=== PATIENT | female | born 1975 | race Caucasian/White ===

== ENCOUNTER → 2019-07-04 06:59 | Outpatient (CLI) | payer OTHER, SELFPAY ==
--- NOTE | ~2019-07-04 | MM_ITS ---
EXAMINATION: MM screening [facility] BI w cristian HISTORY: Screening mammogram TECHNIQUE: Craniocaudal and mediolateral oblique 3-D tomosynthesis images were obtained and synthetic 2-D images were generated. CAD analysis was submitted and interpreted. COMPARISON: 03/26/2018, 03/21/2017, 03/06/2017, 12/09/2015 BREAST PARENCHYMAL COMPOSITION: The breasts are heterogeneously dense, which may obscure small masses . FINDINGS: There is no evidence of suspicious mass, calcification, or architectural distortion to sugg est malignancy in either breast. There has been no suspicious interval change. IMPRESSION: 1. No mammographic evidence of malignancy. 2. Recommend routine screening mammography in one year. BI-RADS Category 1: Negative Reviewed, dictated and finalized at location A.
== END ==
PROVIDERS: Visit Provider Obstetrics & Gynecology
DX: Z12.31 Encounter for screening mammogram for malignant neoplasm of breast (principal)
CPT/HCPCS: 77063; 77067

== ENCOUNTER → 2019-11-15 10:12 | Outpatient (CLI) | payer OTHER, SELFPAY ==
--- NOTE | ~2019-11-15 | XR_ITS ---
EXAMINATION: XR hip RT min 2V DATE: 11/15/2019 10:34 INDICATION: Right hip pain. TECHNIQUE: 2 views of right hip were obtained. COMPARISON: None. FINDINGS: Bone alignment is normal. No fracture. There is mild right hip osteoarthritis. IMPRESSION: 1. Mild right hip osteoarthritis. Reviewed, dictated and finalized at location A.
== END ==
PROVIDERS: PCP Family Medicine; Visit Provider Family Medicine
DX: M16.11 Unilateral primary osteoarthritis, right hip (principal)
CPT/HCPCS: 73502

== ENCOUNTER → 2020-07-14 13:39 | Outpatient (CLI) | payer OTHER, SELFPAY ==
--- NOTE | ~2020-07-14 | XR_ITS ---
XR ankle RT min 3V DATE: 07/14/2020 13:56 INDICATION: Right ankle pain TECHNIQUE: 4 views COMPARISON: 05/12/2014 right ankle FINDINGS: There is mild lateral soft tissue swelling of the ankle. No fracture or dislocation of the ankle or disruption of the ankle mortise. Plantar and posterior calcaneal enthesopathy. No periosteal reaction or bone destruction. IMPRESSION: Mild lateral soft tissue swelling Calcaneal enthesopathy Reviewed, dictated and finalized at location B.
== END ==
PROVIDERS: PCP Family Medicine; Visit Provider Physician Assistant
DX: M79.89 Other specified soft tissue disorders (principal); M77.51 Other enthesopathy of right foot and ankle
CPT/HCPCS: 73610

== ENCOUNTER → 2020-12-21 15:57 | Outpatient (CLI) | payer OTHER, SELFPAY ==
--- NOTE | ~2020-12-21 | MM_ITS ---
EXAMINATION: MM screening [facility] w cristian HISTORY: Screening TECHNIQUE: Craniocaudal and mediolateral oblique 3-D tomosynthesis images were obtained and synthetic 2-D images were generated. CAD analysis was submitted and interpreted. COMPARISON: Comparison to multiple prior studies sequentially, with oldest reviewed study dated 11/10. BREAST PARENCHYMAL COMPOSITION: The breasts are extremely dense, which lowers the sensitivity of mamm ography. FINDINGS: There is no evidence of suspicious mass, calcification, or architectural distortion to sugg est malignancy in either breast. There has been no suspicious interval change. IMPRESSION: 1. No mammographic evidence of malignancy. 2. Recommend routine screening mammography in one year. BI-RADS Category 1: Negative Reviewed, dictated and finalized at location A.
== END ==
PROVIDERS: Visit Provider Advanced Practice Midwife
DX: Z12.31 Encounter for screening mammogram for malignant neoplasm of breast (principal)
CPT/HCPCS: 77063; 77067

== ENCOUNTER → 2021-01-28 08:08 | Outpatient (CLI) | payer OTHER, SELFPAY ==
--- NOTE | ~2021-01-28 | XR_ITS ---
XR cervical spine min 6V DATE: 01/28/2021 08:29 INDICATION: Neck pain TECHNIQUE: AP, open-mouth, lateral, swimmer views. Flexion and extension lateral views. COMPARISON: None FINDINGS: There is straightening of the cervical spine which may be due to muscle spasm. C1 and C2 are normally aligned and the odontoid process is intact. No fracture or dislocation or lock ed facet or prevertebral soft tissue swelling. There is no evidence of cervical instability on flexion or extension. There is moderately prominent degenerative disc disease and anterior spurring at C3-4, C4-5 and C5-6 and severe degenerative disc disease at C6-7. IMPRESSION: Multilevel degenerative disc disease, most pronounced at C6-7 Reviewed, dictated and finalized at location A.
== END ==
PROVIDERS: PCP Family Medicine; Visit Provider Physician Assistant
DX: M50.323 Other cervical disc degeneration at C6-C7 level (principal)
CPT/HCPCS: 72052

== ENCOUNTER → 2021-03-05 07:46 | Outpatient (CLI) | payer OTHER, SELFPAY ==
--- NOTE | ~2021-03-05 | MR_ITS ---
EXAMINATION: MR cervical spine wo con DATE: 03/05/2021 08:39 INDICATION: Cervical radiculopathy. Neck pain. TECHNIQUE: Magnetic resonance imaging (MRI) of the cervical spine was performed without intravenous c ontrast. Sequences included sagittal T2-weighted FSE, sagittal STIR FSE, sagittal T1-weighted FSE, ax ial MERGE, and axial T2-weighted FSE. COMPARISON: Cervical spine MRI 03/26/2018, radiographs 01/28/2021 FINDINGS: There is hypolordosis of cervical spine. Vertebral body heights are normal. There is modera tely decreased disc height at C3-C4, C5-C6, and C6-C7 and mildly decreased disc height at C4-C5. Ther e is syringohydromyelia at C5 with diameter 3 mm. The following disc levels are specifically discusse d: C2-C3: The disc does not extend beyond the endplate margin. There is no uncovertebral joint osteoarth ritis. There is mild bilateral facet joint osteoarthritis. There is no neural foraminal stenosis. The re is no central canal stenosis. C3-C4: The disc is bulging. There is mild bilateral uncovertebral joint osteoarthritis. There is mild bilateral facet joint osteoarthritis. There is mild bilateral neural foraminal stenosis. There is no central canal stenosis. C4-C5: The disc is bulging. There is mild bilateral uncovertebral joint osteoarthritis. There is mild bilateral facet joint osteoarthritis. There is moderate neural foraminal stenosis. There is mild idalia tral canal stenosis. C5-C6: The disc is bulging. There is mild right and severe left uncovertebral joint osteoarthritis. T here is mild right and severe left facet joint osteoarthritis. There is moderate left neural foramina l stenosis. There is mild central canal stenosis. C6-C7: The disc is bulging. There is moderate right and mild left uncovertebral joint osteoarthritis. There is moderate left facet joint osteoarthritis. There is moderate right and mild left neural fora concepción stenosis. There is mild central canal stenosis. C7-T1: The disc does not extend beyond the endplate margin. There is no uncovertebral joint osteoarth ritis. There is moderate bilateral facet joint osteoarthritis. There is no neural foraminal stenosis. There is no central canal stenosis. IMPRESSION: 1. Moderate cervical spondylosis, stable from 03/26/2018. 2. 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 Reviewed, dictated and finalized at location A. FINISHER
== END ==
PROVIDERS: PCP Family Medicine; Visit Provider Nurse Practitioner Family
DX: M47.22 Other spondylosis with radiculopathy, cervical region (principal)
CPT/HCPCS: 72141

== ENCOUNTER → 2022-03-22 16:14 | Outpatient (CLI) | payer OTHER, SELFPAY ==
--- NOTE | ~2022-03-22 | MM_ITS ---
EXAMINATION: MM screening [facility] BI w cristian HISTORY: Screening mammogram TECHNIQUE: Craniocaudal and mediolateral oblique 3-D tomosynthesis images were obtained and synthetic 2-D images were generated. CAD analysis was submitted and interpreted. COMPARISON: 12/21/2020, 07/04/2019, 03/26/2018 BREAST PARENCHYMAL COMPOSITION: The breasts are heterogeneously dense, which may obscure small masses . FINDINGS: No suspicious mass, calcification, or architectural distortion are identified in either yisel ast to suggest malignancy. There has been no suspicious interval change. IMPRESSION: 1. No mammographic evidence of malignancy. 2. Recommend routine screening mammography in one year. BI-RADS Category 1: Negative Reviewed, dictated and finalized at location A. CAPPER
== END ==
PROVIDERS: PCP Family Medicine; Visit Provider Advanced Practice Midwife
DX: Z12.31 Encounter for screening mammogram for malignant neoplasm of breast (principal)
CPT/HCPCS: 77063; 77067

== ENCOUNTER → 2022-04-04 06:58 | Outpatient (CLI) | payer OTHER, SELFPAY ==
--- NOTE | ~2022-04-04 | MR_ITS ---
EXAMINATION: MR hip RT wo con DATE: 04/04/2022 07:50 INDICATION: Right hip pain. TECHNIQUE: Magnetic resonance imaging (MRI) of the right hip was performed without intravenous contra st. COMPARISON: Right hip radiographs 03/02/2022 FINDINGS: Bones/cartilage: Bone alignment is normal. No fracture. The femoral head/neck morphologies are normal. The hip joints demonstrate tiny osteophytes. Small [id number] images of right hip demonstrate partial-thickness c artilage loss superiorly and posteriorly. Labrum: There is a tear of the right acetabular labrum. Fluid: There is no hip joint effusion. There is mild bilateral trochanteric bursitis. Soft tissues: The iliopsoas tendons are normal. There is tendinopathy and partial tear of right gluteus minimus ten don. Right gluteus medius tendon is normal. There is tendinopathy and partial tear of left gluteus mi nimus tendon. There is mild left gluteus medius tendinopathy. There are partial tears of the hamstrin g origins bilaterally. There is edema in right obturator externus muscle, consistent with strain. IMPRESSION: 1. Mild osteoarthritis of the hips. 2. Right acetabular labral tear. 3. Mild strain of right obturator externus muscle. 4. Tendinopathy and partial tears of the gluteus minimus tendons bilaterally. 5. Mild bilateral trochanteric bursitis. 6. Partial tears of the hamstring origins bilaterally. Reviewed, dictated and finalized at location A. TECHNICIAN
== END ==
PROVIDERS: PCP Family Medicine; Visit Provider Orthopaedic Surgery
DX: M70.61 Trochanteric bursitis, right hip (principal); M70.62 Trochanteric bursitis, left hip; M16.0 Bilateral primary osteoarthritis of hip
CPT/HCPCS: 73721

== ENCOUNTER 2023-05-09 08:40 | Outpatient (CLI) | payer OTHER, BC, SELFPAY ==
--- NOTE | ~2023-05-09 | XR_ITS ---
XR chest 2V DATE: 05/09/2023 14:49 INDICATION: Cough for 3 days. RSV. TECHNIQUE: PA and lateral views. Patient was unable to raise 1 arm, resulting in a suboptimal lateral view. COMPARISON: None FINDINGS: Normal heart size. No hilar or mediastinal enlargement. No pulmonary infiltrate or consolid ation, pleural effusion or pulmonary vascular congestion or pneumothorax. There is thoracolumbar dext roscoliosis. IMPRESSION: No active cardiopulmonary disease Reviewed, dictated and finalized at location L. H INSPECTOR
[2023-05-09 09:35] LABS: Influenza A QL RT-PCR Negative (Negative); Influenza B QL RT-PCR Negative (Negative); RSV RNA, RT-PCR Positive (Negative); SARS-CoV-2 RNA PCR Negative (Negative)
== END 2023-05-09 08:41 | disposition home or self-care (01) ==
PROVIDERS: PCP Family Medicine; Visit Provider Physician Assistant
DX: R05.9 Cough, unspecified (principal); R53.83 Other fatigue; Z20.822 Contact with and (suspected) exposure to COVID-19
CPT/HCPCS: 71046; 87637

== ENCOUNTER 2023-07-05 14:16 | Outpatient (CLI) | payer BC, OTHER, SELFPAY ==
--- NOTE | ~2023-07-05 | MM_ITS ---
EXAMINATION: MM screening [facility] w cristian HISTORY: Screening mammogram TECHNIQUE: Craniocaudal and mediolateral oblique 3-D tomosynthesis images were obtained and synthetic 2-D images were generated. Bilateral rotated lateral CC views. CAD analysis was submitted and interp reted. COMPARISON: 03/22/2022, bilateral screening mammogram examinations BREAST PARENCHYMAL COMPOSITION: The breasts are heterogeneously dense, which may obscure small masses . FINDINGS: There is no evidence of suspicious mass, calcification, or architectural distortion to sugg est malignancy in either breast. There has been no suspicious interval change. IMPRESSION: 1. No mammographic evidence of malignancy. 2. Recommend routine screening mammography in one year. BI-RADS Category 1: Negative Reviewed, dictated and finalized at location A.
== END 2023-07-05 14:17 ==
LOC: MICIMG 14:19
PROVIDERS: PCP Obstetrics & Gynecology; Visit Provider Obstetrics & Gynecology
DX: Z12.31 Encounter for screening mammogram for malignant neoplasm of breast (principal)
CPT/HCPCS: 77063; 77067

== ENCOUNTER 2024-08-21 11:43 | Outpatient (CLI) | payer BC, OTHER, SELFPAY ==
--- NOTE | ~2024-08-21 | MM_ITS ---
EXAMINATION: MM screening [facility] w cristian HISTORY: Screening TECHNIQUE: Craniocaudal and mediolateral oblique 3-D tomosynthesis images were obtained and synthetic 2-D images were generated. CAD analysis was submitted and interpreted. COMPARISON: Comparison to multiple prior studies sequentially, with oldest reviewed study dated 02/23. BREAST PARENCHYMAL COMPOSITION: Dense: The breasts are extremely dense, which lowers the sensitivity of mammography. FINDINGS: There are developing asymmetry in the subareolar and lateral aspect of the right breast, po sterior third. The left breast is stable without evidence for malignancy. IMPRESSION: 1. Developing right breast asymmetries. 2. Additional mammographic views and possible breast ultrasound are recommended. BI-RADS Category 0: Incomplete: Needs additional imaging evaluation. Reviewed, dictated and finalized at location A. IMPRESSION: 1. Developing right breast asymmetries. 2. Additional mammographic views and possible breast ultrasound are recommended . BI-RADS Category 0: Incomplete: Needs additional imaging evaluation.
== END 2024-08-21 11:44 | disposition home or self-care (01) ==
PROVIDERS: PCP Obstetrics & Gynecology; Visit Provider Obstetrics & Gynecology
DX: Z12.31 Encounter for screening mammogram for malignant neoplasm of breast (principal); R92.8 Other abnormal and inconclusive findings on diagnostic imaging of breast
CPT/HCPCS: 77063; 77067

== ENCOUNTER 2024-09-09 13:21 | Outpatient (CLI) | payer BC, OTHER, SELFPAY ==
--- NOTE | ~2024-09-09 | MMUS_ITS ---
EXAMINATION: MM diagnostic brielle RT w cristian, US breast RT complete HISTORY: Follow-up right breast asymmetries TECHNIQUE: Additional 3-D tomosynthesis images of the right breast were performed and synthetic 2-D i mages were generated. CAD analysis was submitted and interpreted. High resolution complete right artur st ultrasound was performed. COMPARISON: Comparison to multiple prior studies sequentially, with oldest reviewed study dated 06/2017. BREAST PARENCHYMAL COMPOSITION: Dense: The breasts are extremely dense, which lowers the sensitivity of mammography. FINDINGS: MAMMOGRAPHIC FINDINGS: There are no suspicious masses, calcifications or architectural distortion in the right breast to sug gest malignancy. ULTRASOUND: Complete US of all 4 quadrants of the right breast/s and retroareolar region was reviewed. There is a 5 mm cyst at 9:00, 4 cm from the nipple. No suspicious masses in the right breast to suggest maligna ncy. IMPRESSION: 1. No evidence for malignancy in the right breast. 2. Routine yearly screening mammogram and regular clinical breast examination are recommended. BI-RADS Category 1: Negative Reviewed, dictated and finalized at location B. IMPRESSION: 1. No evidence for malignancy in the right breast. 2. Routine yearly screening mammogram and regular clinical breast examination a re recommended. BI-RADS Category 1: Negative
--- OUTSIDE RECORDS SUMMARY | 2024-09-09 13:25 | XMS_ITS | Patient Health Record ---
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
--- OUTSIDE RECORDS SUMMARY | 2024-09-09 13:25 | XMS_ITS | Data Portability ---
Author Organization 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 Patient will come back in a year unless there are new symptoms. Not available 01/20/2023 09:55:31 03/14/2024 03/14/2024 Annual gynecological exam performed. Patient will come back in a year unless there are new symptoms. [email or web address] Not available 02/12/2024 12:21:58 Plan of Treatment Reminders Order Date Submit Date Provider Last Modified By Organization Details Last Modified Time Details Appointments None recorded. Lab unlisted lab - women's health swab, MUSTAPHA 2023 024 [facility] (Lab), [address], [place], [address], 4 00:13:50 urinalysis, dipstick 2023 024 [place], [address], [address], [place], [address], 4 17:05:20 culture, urine 2023 024 [facility] (Lab), [address], [place], [address], 4 00:13:50 urinalysis, dipstick 2022 023 [place], [address], [place], [address], 3 18:22:17 Referral None recorded. Procedures None recorded. Surgeries None recorded. Imaging MAMMO, screening, digital, bilateral 2023 024 [facility], [address], [place], [address], 5 14:07:28 US, transvagina l 2022 023 [email or web address] [place], [address], [place], [address], 3 17:34:52 MAMMO, screening, digital, bilateral [address] [facility], [address], [place], [address], 4 11:21:05 Medication Orders fluconazole 150 mg tablet 2023 024 [id number], [address], [place], [id number], 4 17:35:18 hydroxyzine HCl 25 mg tablet 2023 024 [facility], [address], [place], [id number], 4 17:17:48 Diflucan 200 mg tablet 2022 024 [facility], [address], [place], [id number], 4 16:52:57 metronidazo le 500 mg tablet 2022 024 [facility], [address] [facility], [place], [place], [id number], 4 12:22:11 sertraline 50 mg tablet 2021 022 [facility], [facility], [place], [address], 4 16:52:55 Patient TargetsNo targets recorded. Patient InstructionsNo instructions recorded. Reason for Referral None Reported. Results Created Date Observation Date Name Description Value Unit Range Abnormal Flag Note LastModifiedBy Organization Detail LastModifiedTime 11/30/19 22 11/29/2021 IMAGE GUIDE D PAP AND HPV REGAR DLESS image guided Pap, HPV regardless of Pap result SEE RESULT S BELOW CASE REPOR T: Cytol ogy Gynec ologi damian Repor t Case: [id number] Autho bhavani dowling Provi raul: Ally Graham, FRANSICO Colle cted: 11/29 1256 Order ing Locat ion: [place] Path[facility] Recei kleber: 11/30 0128 First Scree n: Rina Luz ret, CT Speci men: Scree víctor Pap - Image d, Cervi x STATE MENT OF ADEQU ACY: Satis facto ry for evalu ation Trans forma tion zone compo nent prese nt FINAL DIAGN OSIS: Negat george for Intra epith elial Keyshawn elizabeth or Joe cross (NIL) . Jose huddleston nas d by Rina Luz ret, CT on 2021 at 1:00 PM ----- ----- ----- ----- ----- ----- ----- ----- ----- ----- ----- ----- ----- ----- ----- ----- ----- ---- HPV RESUL TS: HPV mRNA E6/E7 : No HPV mRNA Detec gabby NOTE: This high risk HPV mRNA assay detec ts fourt een high- risk HPV types (16, 18, 31, 33, 35, 39, 45, 51, 52, 56, 58, 59, 66, 68) witho ut diffe renti ation . COMME NT: Note: This speci men was revie wed by a Cytot echno logis t and/o r Patho logis t (as indic ated in this repor t) after evalu ation using the Thinp rep Imagi ng Syste m. CLINI DAMIAN INFOR MATIO N: Menst rual Statu s: LMP (if appli cable ): Clini damian Histo ry/Pr eviou s Pap: Type of Neopl laurie (if appli cable ): Signi fican t Clini damian Findi ngs: Other Histo ry: Hormo fanny (if appli cable ): PAP EDUCA PAULETTE L NOTE: The Pap Test is a scree víctor test with an inher ent false negat george rate. Liqui d-bas ed sampl ing may decre ase, but will not elimi eric, false negat george resul ts. A negat george resul t does not precl ude the prese nce and/o r devel opmen t of disea se, since the prese nce of abnor mal cells in the sampl e depen ds on the locat ion of the lesio n and sampl ing techn ique. Jed nued regul ar scree víctor is the best metho d of cance r preve ntion . If repor gabby cytol ogic findi ng do not corre late with physi damian and/o r histo rical findi ngs, furth er inves tigat ion is recom kobi d, as clini jaycee warra nted. 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 Elect manuel huddleston nas d by Aminata Valera ica on 2022 at 5:36 PM ----- ----- ----- ----- ----- ----- ----- ----- ----- ----- ----- ----- ----- ----- ----- ----- ----- ---- HPV RESUL TS: HPV mRNA E6/E7 : No HPV mRNA Detec gabby NOTE: This high risk HPV mRNA assay detec ts fourt een high- risk HPV types (16, 18, 31, 33, 35, 39, 45, 51, 52, 56, 58, 59, 66, 68) witho ut diffe renti ation . COMME NT: Slide scree geoffrey pao lly due to rejec tion by the Thinp rep Imagi ng Syste m. CLINI DAMIAN INFOR MATIO N: Menst rual Statu s: LMP (if appli cable ): Clini damian Histo ry/Pr eviou s Pap: Type of Neopl laurie (if appli cable ): Signi jeanette t Clini damian Findi ngs: Other Histo ry: Hormo fanny (if appli cable ): PAP EDUCA PAULETTE L NOTE: The Pap Test is a scree víctor test with an inher ent false negat george rate. Liqui d-bas ed sampl ing may decre ase, but will not elimi eric, false negat george resul ts. A negat george resul t does not precl ude the prese nce and/o r devel opmen t of disea se, since the prese nce of abnor mal cells in the sampl e depen ds on the locat ion of the lesio n and sampl ing techn ique. Jed nued regul ar scree víctor is the best metho d of cance r preve ntion . If repor gabby cytol ogic findi ng do not corre late with physi damian and/o r histo rical findi ngs, furth er inves tigat ion is recom kobi d, as clini jaycee josé manuel nted. Not Available [facility] (Lab) [address], [place], [address], 01/24/2023 18:39:29 04/12/20 23 04/12/2023 urina lysis , dipst ick pH 8 Not Available [place] [address], [place], [address], 04/12/2023 18:21:20 04/12/20 23 04/12/2023 urina lysis , dipst ick Specific [place] 1.005 Not Available [facility] [address], [place], [address], 04/12/2023 18:21:20 03/14/20 24 03/14/2024 WOMEN 'S HEALT H SWAB, MUSTAPHA bacterial vaginosis (bv), tma Negati ve negati ve This test detec ts ribos omal RNA from bacte arnulfo assoc iated with bacte rial vagin osis (BV), inclu ding Lacto bacil aguilar (L. gasse ri, L. crisp atus and L. jense rosa), Gardn erell a vagin layla, and Atopo bium vagin ae by Trans cript ion-M ediat ed Ampli ficat ion (TMA) . A singl e quali tativ e resul t is repor gabby based on instr ument softw are to deter mine BV posit george or negat george statu s. Not Available [facility] (Lab) [address] [facility], [place], [address], 03/16/2024 00:13:49 03/14/20 24 03/14/2024 WOMEN 'S HEALT H SWAB, [place]APHA tereso species, tma Negati ve negati ve Not Available [facility] (Lab) [address] [place], [address], 03/16/2024 00:13:49 03/14/20 24 03/14/2024 WOMEN 'S HEALT H SWAB, MUSTAPHA tereso glabrata, tma Negati ve negati ve Not Available [facility] (Lab) [address] [facility], [place], [address], 03/16/2024 00:13:49 03/14/20 24 03/14/2024 WOMEN 'S HEALT H SWAB, [place]APHA trichomonas vaginalis, tma Negati ve negati ve This assay tests for and diffe renti mariana costello en Susana da glabr brianna, the Susana da speci es group (C. albic ans, C. tropi calis , C. parap arsen is, C. dubli jimi is), and Trich omona s vagin layla by Trans cript ion-M ediat ed Ampli ficat ion (TMA) . Not Available [facility] (Lab) [address] [place], [address], 03/16/2024 00:13:49 03/14/20 24 03/14/2024 CULTU RE: URINE result report SEE RESULT S BELOW Test: Cultu re: Urine Speci men Sourc e: Urine - Clean Catch Speci men Type: Urine Speci men Date: 03/14 1657 Resul t Date: 03/15 2311 Resul t Statu s: Final resul t Abnor mal: No Resul ting Lab: [facility] [address] [facility] [address] Tel: CULTU RE ----- ----- ----- --- No growt h in 1 day (dete ction level of 10,00 0 colon ies / ml.) Not Available [facility] (Lab) [address], [place], [address], 03/16/2024 00:13:50 03/14/20 24 03/14/2024 urina lysis , dipst ick Leukocytes - Not Available [facility] [address], [place], [address], 03/14/2024 17:00:47 03/14/20 24 03/14/2024 urina lysis , dipst ick Nitrite - Not Available [place] [address], [place], [address], 03/14/2024 17:00:47 03/14/20 24 03/14/2024 urina lysis , dipst ick Urobilinogen - Not Available [facility] izabela [address], [place], [address], 03/14/2024 17:00:47 03/14/20 24 03/14/2024 urina lysis , dipst ick Protein trace Not Available [place] [address], [place], [address], 03/14/2024 17:00:47 03/14/20 24 03/14/2024 urina lysis , dipst ick pH 5 Not Available [place] [address], [place], [address], 03/14/2024 17:00:47 03/14/20 24 03/14/2024 urina lysis , dipst ick Specific [place] 1.020 Not Available [facility] yovany [address], [place], [address], 03/14/2024 17:00:47 03/14/20 24 03/14/2024 urina lysis , dipst ick Ketone - Not Available [place] [address], [place], [address], 03/14/2024 17:00:47 03/14/20 24 03/14/2024 urina lysis , dipst ick Bilirubin - Not Available [facility] [address], [place], [address], 03/14/2024 17:00:47 03/14/20 24 03/14/2024 urina lysis , dipst ick Glucose - Not Available [place] [address], [place], [address], 03/14/2024 17:00:47 03/14/20 24 03/14/2024 urina lysis , dipst ick Appearance clear Not Available [facility] [address], [place], [address], 03/14/2024 17:00:47 03/14/20 24 03/14/2024 urina lysis , dipst ick Color light yellow Not Available [place] [address], [place], [address], 03/14/2024 17:00:47 03/23/20 22 03/22/2022 MAMMO , scree víctor, bilat eral No observ ation record ed. [facility] [address] [facility], [place], [address], 03/26/2022 17:46:33 01/27/20 23 01/26/2023 US, trans vagin al No observ ation record ed. [facility] [address], [place], [address], 01/26/2023 13:22:39 01/27/20 23 01/26/2023 US, trans vagin al No observ ation record ed. [facility] [address], [place], [address], 01/31/2023 14:45:18 07/05/19 24 07/05/2023 imagi ng/di agnos tic resul t No observ ation record ed. [facility] [place] [facility] [address], [place], [address], 07/06/2023 10:39:47 08/22/19 25 08/21/2024 MAMMO , scree víctor, digit al, bilat eral No observ ation record ed. [email or web address] [place] [facility] [address], [place], [address], 08/23/2024 09:57:24 08/23/1908/21/2024 MAMMO , scree víctor, digit al, bilat eral No observ ation record ed. [email or web address] [place] [facility] [address], [place], [address], 08/26/2024 12:05:27 Result Notes None recorded. Problems Name Problem SNOMED Code Status Onset Date Resolution Date Notes Provider Name and Address Organization Details Recorded Time Screenin g for malignan t neoplasm of rectum Completed 201709/10/2020 Encounte r for screenin g for malignan t neoplasm of rectum;R ecorded Elsewher e: No Locat ion: [facility] S ource: EHR Facilities Officer tanmay: N Jonnieti ce ID: 0001 Henok lable Time: 08:15:00 AM Yulisa diaz [facility] 16:53:19 Evaluati on finding [id number] Completed 201609/10/2020 Oth abn and inconclu sive findings on dx imaging of breast;R ecorded Elsewher e: No Locat ion: [facility] S ource: EHR Facilities Officer tanmay: N Jonnieti ce ID: 0001 Henok lable Time: 11:19:59 AM Yulisa diaz [facility] 16:53:10 Vaginiti s and vulvovag initis Completed 201209/10/2020 Vaginiti s;Record ed Elsewher e: No Locat ion: [facility] lizzy [facility] S ource: EHR Facilities Officer tanmay: N Practi ce ID: 0001 Henok lable Time: 10:45:00 AM Yulisa diaz, [facility] 16:53:03 Speciali zed medical examinat ion Completed 201409/10/2020 Gynecolo gical Examinat ion;John rded Elsewher e: No Locat ion: [facility] S ource: EHR Facilities Officer tanmay: N Practi ce ID: 0001 Henok lable Time: 08:30:00 AM Yulisa diaz, [facility] 16:53:[address] Concept Completed 201509/10/2020 Encntr for general adult medical exam w/o abnormal findings ;Recorde d Elsewher e: No Locat ion: [facility] S ource: EHR Facilities Officer tanmay: N Practi ce ID: 0001 Henok lable Time: 08:30:00 AM Yulisa diaz, [facility] 16:53:22 Postcoit al finding [id number] Completed 201809/10/2020 Postcoit al bleeding ;Recorde d Elsewher e: No Locat ion: [facility] lizzy [facility] S ource: EHR Facilities Officer tanmay: N Practi ce ID: 0001 Henok lable Time: 03:30:00 PM Yulisa diaz [facility] 16:53:07 Female genital organ symptoms [id number] Completed 201409/10/2020 Unspecif ied symptom associat ed with female genital organs;R ecorded Elsewher e: No Locat ion: [facility] lizzy [facility] S ource: EHR Facilities Officer tanmay: N Practi ce ID: 0001 Henok lable Time: 05:15:00 PM Yulisa daiz [facility] 1 16:53:05 Increase d frequenc y of urinatio n [id number] Completed 201809/10/2020 Frequenc y of micturit ion;John rded Elsewher e: No Locat ion: [facility] S ource: EHR Facilities Officer tanmay: N Jonnieti ce ID: 0001 Henok lable Time: 08:45:00 AM Yulisa diaz [facility] 1 16:53:00 Adult health examinat ion Completed 201409/10/2020 ROUTINE MEDICAL EXAM;Rec orded Elsewher e: No Locat ion: [facility] S ource: EHR Facilities Officer tanmay: N Jonnieti ce ID: 0001 Henok lable Time: 08:30:00 AM Yulisa Dixon [facility] 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 16:53:23 Screenin g procedur e Completed 201809/10/2020 Encounte r for screenin g for malignan t neoplasm of colon;Re corded Elsewher e: No Locat ion: [facility] S ource: EHR Facilities Officer tanmay: N Jonnieti ce ID: 0001 Henok lable Time: 03:30:00 PM Yulisa diaz [facility] 1 16:53:25 Menstrua tion finding Completed 201409/10/2020 Excessiv e or frequent menstrua tion;Rec orded Elsewher e: No Locat ion: [facility] S ource: EHR Facilities Officer tanmay: N Practi ce ID: 0001 Henok lable Time: 08:30:00 AM Yulisa diaz [facility] 1 16:53:36 Screenin g for malignan t neoplasm of cervix Completed 201109/10/2020 Screenin g for malignan t neoplasm s of the cervix;R ecorded Elsewher e: No [facility] Facilities Officer tanmay: N Practi ce ID: 0001 Henok lable Time: 08:45:00 AM Yulisa Zack diaz [facility] 1 16:53:02 Urinary tract infectio us disease [id number] Completed 201009/10/2020 Urinary tract infectio n, site not specifie d;Practi ce ID: 0001 Yulisa Zack joe [facility] 16:53:41 Dysuria [id number] Completed 201009/10/2020 Dysuria; Practice ID: 0001 Yulisa diaz [facility] 16:53:26 Feeling irritabl e [id number] Completed 201009/10/2020 IRRITABI LITY;Pra ctice ID: 0001 Yulisa Jimenezan [facility] 16:53:40 Problem Notes None recorded. Procedures Surgical History Date Name Laterality Status Provider Name and Address Organization Details Recorded Time 3 Date of Last Pap Smear completed Marcela Fowler [facility] 04/12/2023 18:03:21 0 completed Yulisa Dixon [facility] 09/10/2020 17:18:38 9 Carpal tunnel surgery completed Carly Owens [facility] 10/02/2019 11:37:58 7 ligation of bilateral fallopian tubes completed Carly Owens [facility] 10/02/2019 09:22:30 7 section completed Carlaoctavio Hall [facility] 11/08/2021 09:30:46 3 section completed Carla [facility] 11/08/2021 09:30:50 5 extraction of wisdom tooth completed [facility] 11/29/2021 10:37:53 Imaging Results Imaging Date Name Status LastModified by Organization Details LastModified Time 03/22/2022 MAMMO, screening, bilateral completed [facility] [address], [place], [address], 03/26/2022 17:46:33 01/26/2023 US, transvaginal completed jimy Landaverde e [address], [place], [address], 01/26/2023 13:22:39 01/26/2023 US, transvaginal completed [facility] Mckenzie [address], [place], [address], 01/31/2023 14:45:18 07/05/2023 imaging/diagnost ic result completed [facility] [address], [place], [address], 07/06/2023 10:39:47 08/21/2024 MAMMO, screening, digital, bilateral completed [email or web address] [place] [facility] [address], [place], [address], 08/23/2024 09:57:24 08/21/2024 MAMMO, screening, digital, bilateral completed [email or web address] [facility] [address], [place], [address], 08/26/2024 12:05:27 Procedure Notes None recorded. Medical Equipment None Reported. Allergies No known drug allergies Medications Name Sig Start Date Stop Date Status Note LastModified by Organization Details LastModified Time azithromy david 250 mg tablet 11/29 completed Not Available Not Available Not Available fluconazo le 150 mg tablet Take 1 tablet PO once. active Not Available Not Available No t Available benzonata te 200 mg capsule 03/14 completed Not Available Not Available Not Available hydrocodo ne 5 mg-acetam inophen 325 mg tablet 03/14 completed Not Available Not Available Not Available fluconazo le 200 mg tablet TAKE 1 TABLET BY MOUTH EVERY OTHER DAY FOR 3 DOSES 03/14 completed Not Available Not Available Not Available prednison e 20 mg tablet 11/29 completed Not Available Not Available Not Available pimecroli mus 1 % topical cream 09/10 completed Not Available Not Available Not Available meclizine 12.5 mg tablet TAKE 1 TABLET BY MOUTH THREE TIMES DAILY NEEDED FOR DIZZINES S 10/08 completed Not Available Not Available Not Available metronida zole 500 mg tablet TAKE 1 TABLET BY MOUTH TWICE DAILY FOR 7 DAYS. TAKE WITH MEALS. 02/11 completed Not Available Not Available Not Available valacyclo vir 500 mg tablet 2024 active Not Available Not Available Not Avai lable amoxicill in 875 mg tablet TAKE 1 TABLET BY MOUTH TWICE DAILY UNTIL ALL TAKEN 03/14 completed Not Available Not Available Not Available Metrogel Vaginal 0.75 % (37.5 mg/5 gram) insert 1 applicat orful by vaginal route for 5 nights at bedtime 09/10 completed Prescrib margarita Cuevas e: No Locat ion: Saima velazquez [facility] odify By: meenakshi argueta DateTime : 10/09/19 12:57:10 PM Not Available Not Available Not Available methocarb jose raul 750 mg tablet TAKE 1 TABLET BY MOUTH TWICE DAILY FOR 5 DAYS NEEDED 11/29 completed Not Available Not Available Not Available benzonata te 100 mg capsule TAKE 1 TO 2 CAPSULES BY MOUTH THREE TIMES DAILY NEEDED FOR COUGH. DO NOT EXCEED 6 CAPSULES IN 24 HOURS. 03/14 completed Not Available Not Available Not Available cephalexi n 500 mg capsule 09/10 completed Not Available Not Available Not Available gabapenti n 300 mg capsule 11/29 completed Not Available Not Available Not Available hydroxyzi ne HCl 25 mg tablet Take 1 tablet 3 times a day by oral route as needed. active Not Available Not Available No t Available furosemid e 20 mg tablet Take 1 tablet every day by oral route. active Not Available Not Available No t Available methylpre dnisolone 4 mg tablets in a dose pack FOLLOW PACKAGE DIRECTIO NS 10/08 completed Not Available Not Available Not Available albuterol sulfate HFA 90 mcg/actua tion aerosol inhaler INHALE 2 PUFFS BY MOUTH EVERY 4 HOURS NEEDED FOR SHORTNES S OF BREATH active Not Available Not Available No t Available sertralin e 50 mg tablet TAKE 1 TABLET DAILY 03/14 completed Not Available Not Available Not Available cyclobenz aprine 5 mg tablet TAKE 1 TABLET BY MOUTH THREE TIMES DAILY NEEDED FOR MUSCLE SPASM 11/29 completed Not Available Not Available Not Available Lasix 10/08 completed Not Available Not Available Not Available Valtrex 10/07 completed Not Available Not Available Not Available Vitals Date Recorded Body height Body mass index (BMI) Body weight Systolic blood pressure Diastolic blood pressure Provider Name and Address Organization Details Last Updated DateTime 11/29/2021 163.83 cm 28.2 kg/m2 79607.93 g 119 mm[Hg] 79 mm[Hg] Carla Hall [facility] 2 10:33:14 Date Recorded Body height Body mass index (BMI) Body weight Systolic blood pressure Diastolic blood pressure Provider Name and Address Organization Details Last Updated DateTime 01/20/2023 163.83 cm 28.2 kg/m2 72050.93 g 112 mm[Hg] 75 mm[Hg] Marcela Fowler [facility] 3 09:55:46 Date Recorded Body height Body mass index (BMI) Body weight Systolic blood pressure Diastolic blood pressure Provider Name and Address Organization Details Last Updated DateTime 04/12/2023 163.83 cm 28.6 kg/m2 81303.11 g 113 mm[Hg] 67 mm[Hg] Marcela Fowler [facility] 3 18:16:37 Date Recorded Body height Body mass index (BMI) Body weight Systolic blood pressure Diastolic blood pressure Provider Name and Address Organization Details Last Updated DateTime 03/14/2024 163.83 cm 26.4 kg/m2 54181.41 g 119 mm[Hg] 81 mm[Hg] Krys Meek [facility] 4 16:52:35 Social History Question Answer Notes LastModified by Organizat ion Details LastModified Time Tobacco Smoking Status Never Smoker Marcela Fowler [facility] 01/20/2023 09:56:01 Do You Have An Advance Directive? No [email or web address] Information n ot available 11/29/2021 How Many Years Have You Consumed Alcohol? 25 Information not available 11/29/2021 Are You Blind Or Do You Have Difficulty Seeing? No [email or web address] Information n ot available 11/29/2021 What Is Your Level Of Caffeine Consumption? Moderate [email or web address] Information not available 11/29/2021 In The 14 Days Before Symptom Onset, Have You Had Close Contact With A Laboratory-confirm ed COVID-19 While That Case Was Ill? No [email or web address] Information n ot available 11/29/2021 In The 14 Days Before Symptom Onset, Have You Had Close Contact With A Person Who Is Under Investigation For COVID-19 While That Person Was Ill? No [email or web address] Information not available 11/29/2021 Have You Been To An Area Known To Be High Risk For COVID-19? No [email or web address] Information not available 11/29/2021 Are You Deaf Or Do You Have Serious Difficulty Hearing? No [email or web address] Information not available 11/29/2021 What Type Of Diet Are You Following? REGULAR [email or web address] Information n ot available 11/29/2021 What Is The Highest Grade Or Level Of School You Have Completed Or The Highest Degree You Have Received? [id number] [email or web address] Information not available 11/29/2021 Are There Any Guns Present In Your Home? No [email or web address] Information not available 11/29/2021 Have You Ever Been Counseled For Unhealthy Alcohol Use? No Information not available 01/20/2023 Do You Use Protection During Sex? No [email or web address] Information not available 11/29/2021 Do You Use Your Seat Belt Or Car Seat Routinely? Yes [email or web address] Information not available 11/29/2021 Do You Have Smoke And Carbon Monoxide Detectors In Your Home? Yes [email or web address] Information not available 11/29/2021 How Much Tobacco Do You Smoke? No [email or web address] Information not available 11/29/2021 Do You Use Sunscreen Routinely? Yes [email or web address] Information not available 11/29/2021 Has Tobacco Cessation Counseling Been Provided? No Information not available 01/20/2023 Have You Used IV Drugs? No Information not available 01/20/2023 Do You Have Difficulty Walking Or Climbing Stairs? No Information not available 01/20/2023 Sex: Unknown Functional Status Question Answer Note LastModified by Organizat ion Details LastModified Time Do you use any illicit or recreational drugs? No [email or web address] Information not available 11/29/2021 Do you or have you ever used any other forms of tobacco or nicotine? No Information not available 01/20/2023 What is your level of alcohol consumption? Moderate Information not available 11/29/2021 Are you able to walk? YESWOREST [email or web address] Information not available 11/29/2021 Are you able to care for yourself? 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 No Information not available 01/20/2023 What is your exercise level? Moderate [email or web address] Information not available 11/29/2021 Mental Status Question Answer Note LastModified by Organization D etails LastModified Time Do you feel stressed (tense, restless, nervous, or anxious, or unable to sleep at night)? [id number]|2024-09-09 13:25:00|2024-09-09 13:25:00|XMS_ITS|PATRICA PARSONS|External Medical Summaries|[id number]|" Progress note - 07/29/2024 Created on: September 09, 2024 Chiquis Montero : 1975 Sex: Female Author Organization [facility] Address [address] [address] [place] [address] Care Team Providers Care Professor Of Musicology Name Role Phone Arash Jean Primary Care Provider [phone] Allergies No Known Allergies REASON FOR VISIT I have had a couple ear infections in the past couple years in left ear and it feels like its returning. Medications Medication SIG (Take, Route, Frequency, Duration) Notes Start Date End Date Status Amoxicillin-Pot Clavulanate 875-125 MG 1 tablet Orally every 12 hrs for 10 days 07/29/2024 Active Furosemide 20 MG 1 tablet Orally Once a day Active Vital Signs Temperature 97.2 degrees Fahrenheit 07/30/19 25 Blood pressure systolic 113 mm Hg 07/30/19 25 Blood pressure diastolic 77 mm Hg 025 Heart Rate 73 /min 07/29/2024 Respiratory Rate 16 /min 07/29/2024 Height 65 in 07/29/2024 Weight 156.8 lbs 07/29/2024 BMI 26.09 kg/m2 07/29/2024 Oximetry 99 % 07/29/2024 Height-cm 165.1 cm 07/29/2024 Weight-kg 71.12 kg 07/29/2024 Encounters Encounter Location Date Provider Diagnosis [facility] [place] [address] [facility] [address] [place] [address] 07/29/2024 Arash Jean Otitis H66.90 Assessments Encounter Date Diagnosis (ICD Code) Assessment Notes Treatment Notes Treatment Clinical Notes Section Notes 07/29/2024 Otitis (ICD-10 - H66.90) Take Augmentin twice daily for 10 days. I recommend taking a probiotic containing lactobacillus with the medication. Please continue fluticasone 2 sprays per nostril once daily. Recommend adding a Claritin or Zyrtec once daily. Please monitor and return to clinic for worsening symptoms including fever, ear discharge, pain. Plan Of Treatment Medication Medication Name Sig Start Date Stop Date Notes Amoxicillin-Pot Clavulanate 875-125 MG 1 tablet Orally every 12 hrs for 10 days 07/29/2024 Treatment Notes Assessment Notes Otitis Take Augmentin twice daily for 10 days. I recommend taking a probiotic containing lactobacillus with the medication. Please continue fluticasone 2 sprays per nostril once daily. Recommend adding a Claritin or Zyrtec once daily. Please monitor and return to clinic for worsening symptoms including fever, ear discharge, pain. 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 * HPI: D epression Screening: PHQ2 (2015 Edition) L ittle interest or pleasure in doing things? Not at all F eeling down, depressed, or hopeless? N ot at all T otal Score 0 * : 49-year-old female presents for left ear pain x5 days. Pain is intermittent, worse over the weekend. She felt like she had a URI which is now improved. [place] sensation of fluid in her ear couple days ago. reports frequent ear infections on the left side over the last couple years, cause is unclear. Reports congestion.Denies fever, otorrhea, body aches, sore throat, cough. * ROS: G eneral/Constitutional: See HPI X . * Medical History: * Surgical History: C arpal Tunnel 2018Trigger Thumb 2023 * Hospitalization/Major Diagno stic Procedure: D enies Past Hospitalization * Family History: M other: alive, Arthritis, Cancer, Cancer (kidney), Diabetes. F ather: alive, Arthritis. 2 brother(s) . 2 daughter(s) - healthy. . Brothers have heart conditions. * Social History: T obacco Use: O ther Tobacco Use: Patient does not use tobacco products. D rugs/Alcohol: A lcohol: Patient does use alcohol products, socially. History of Drug Use: Patient does not use recreational drugs. M iscellaneous: E xercise: threeToFiveTimesPerWeek. Sexually active: Active? Yes Contraception: n/a. * Medications: T akingFurosemide 20 MG Tablet 1 tablet Orally Once a day Medication List reviewed and reconciled with the patientTaking Furosemide 20 MG Tablet 1 tablet Orally Once a day Medication List reviewed and reconciled with the patient * Allergies: N .K.A.no[Allergies Verified] Objective: * Vitals: T emp:97.2F, Ht: 65 in, Wt:156.8lbs, HR:73/min, Oxygen sat %:99%, RR:16/min, BP:113/77mm Hg, BMI:26.09Index, Ht-cm: 165.1 cm, Wt-k.12 kg. * Examination: G eneral Examination: General Appearance a lert, calm and relaxed, cooperative, in no acute distress. HEAD: n ormocephalic, atraumatic. EYES: B OTH EYES, PERRL, EOMI, eyes clear, no photophobia to light confrontation. EARS: Right ear normal. L eft ear: External ear normal. Mildly opaque fluid present at 3 o'clock position. TM is injected, intact, not bulging.. NOSE: e xternal normal, turbinates red and swollen. ORAL CAVITY: m ucosa moist and pink, no lesions. THROAT: N o erythema, no exudate, uvula midline, with no exudates or ulcerations. NECK/THYROID: n aric supple, full range of motion, no cervical lymphadenopathy or obvious mass.. SKIN: warm and dry. HEART: r egular rate and rhythm, S1, S2 (+), no murmurs, rubs, gallops. LUNGS: c lear to auscultation bilaterally, no wheezes, rales, rhonchi, good air movement. MUSCULOSKELETAL: f ull range of motion x4,. NEUROLOGIC: alert and oriented, gait normal. Gait N ormal. Assessment: * Assessment: 1. O titis - H66.90 (Primary) Plan: * Treatment: * Procedure Codes: * Preventive Medicine: Prevention and Screening: B reast Cancer: Date of Last Mammogram Screen 0 07/12/2023 Results N ormal C ervical Cancer: Date of the last PAP Smear : 1 06/05/2023 Results N ormal C olon Cancer: Date of Last Cologuard 0 10/04/2023 Cologuard Results N ormal * Follow Up: p rn * * Sign off status: Completed true * Appointment Provider: HUGH Haas Date: 0 07/29/2024 Generated for Cole olivas/Hellen/Catherineitting on: 0 09/09/2024 01:25 PM CDT History and Physical Notes * HPI (History of Present Illness) Category Sub-Category Detail Notes Category Not es Depression Screening PHQ2 (2015 Edition) Little interest or pleasure in doing things?: Not at all Feeling down, depressed, or hopeless?: N ot at all Total Score: 0 49-year-ol d female presents for left ear pain x5 days. Pain is intermittent, worse over the weekend. She felt like she had a URI which is now improved. [place] sensation of fluid in her ear couple days ago. reports frequent ear infections on the left side over the last couple years, cause is unclear. Reports congestion.Denies fever, otorrhea, body aches, sore throat, cough. Examination Category Sub-Category Detail Notes Category Not es General Examination General Appearance alert, ca lm and relaxed, cooperative, in no acute distress HEAD: normocephalic, atrau matic EYES: BOTH EYES, PERRL, EO TX, eyes clear, no photophobia to light confrontation EARS: Right ear normal. Le ft ear: External ear normal. Mildly opaque fluid present at 3 o'clock position. TM is injected, intact, not bulging. NOSE: external normal, tur binates red and swollen THROAT: No erythema, no exud ate, uvula midline, with no exudates or ulcerations NECK/THYROID: neck supple, full ra nge of motion, no cervical lymphadenopathy or obvious mass. HEART: regular rate and rhy thm, S1, S2 (+), no murmurs, rubs, gallops LUNGS: clear to auscultatio n bilaterally, no wheezes, rales, rhonchi, good air movement NEUROLOGIC: alert and oriented, gait normal SKIN: warm and dry MUSCULOSKELETAL: full range of motion x4, ORAL CAVITY: mucosa moist and pin k, no lesions Gait Normal "
--- OUTSIDE RECORDS SUMMARY | 2024-09-09 13:25 | XMS_ITS ---
Author Organization [facility] Address [address] [facility] [address] [place] [address] Care Team Providers Care Key Attendant Name Role Phone Arash Jean Primary Care Provider [phone] REASON FOR VISIT flu shot, Flu Vaccine Immunizations Vaccine Route Administration Date Status Comme nts Influenza Vaccine (Flucelvax) IM Intramuscular 02/07/2024 Administered Encounters Encounter Location Date Provider Diagnosis [facility] [address] [facility] [address] [place] [address] 02/07/2024 Arash Jean Influenza vaccine needed Z23 Assessments Encounter Date Diagnosis (ICD Code) Assessment Notes Treatment Notes Treatment Clinical Notes Section Notes 02/07/2024 Influenza vaccine needed (ICD-10 - Z23) Plan Of Treatment No Information Procedure Notes * Category Sub-Category Detail Notes Injections Disposition Pt tolerated pro cedure well and was discharged to home. 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 I nfluenza vaccine needed - Z23 Plan: * Treatment: * Procedures: I njections: Consent Form C onsent: S igned, Scanned into chart Medication M edication Vial Source: [facility] Clinic Supply 5 Rights V erified: P atient,Drug,Dose,Route,Time Injection Site N o reaction. Wait Time P atient waited 1 5 minutes after injection Disposition P t tolerated procedure well and was discharged to home.. * Immunizations: Influenza Vaccine (Flucelvax) : 0.5 mL (Dose No:1) (Route: Intramuscular) given by HUGH Stern on Right Deltoid (Influenza vaccine needed) * Procedure Codes: 9 0471 IMMUNIZATION [id number] IIV3 VACC NO PRSV 0.5 ML [id number] IMMUNIZATION ADMIN EACH ADD * * Sign off status: Completed true * Provider: HUGH Haas Date: Generated for Cole olivas/Hellen/Lorene on: 0 09/09/2024 01:25 PM CDT
--- OUTSIDE RECORDS SUMMARY | 2024-09-09 13:25 | XMS_ITS | Clinical Summary ---
Author Organization [facility] [employer] Address [address] [place] [address] Care Team Providers Care Body Designer Name Role Phone Ivan Whitney MD Primary Care Provider [phone] Source Comments [facility] [employer],non-owned Affiliates and Associated Physician Practices is amultiple site organization consisting of ambulatory clinics and hospital sitesin [place], [place], [place] and [place]. This disclosure is being madepursuant to the Care Everywhere program and may not contain all information available regarding this patient. Last updated 18.[facility] [employer] Allergies No known active allergies Medications * Be aware that medications may not be up to date on this document. Alwaysverify current medications with the patient. 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 Gender Identity Not on file Sexual Orientation Not on file Plan of Treatment Health Maintenance Due Date Last Done Comments COLOGUARD (AGES 45-75) - COL ON CA SCREENING 1975 COLON MONITORING 1975 COLONOSCOPY - COLON CA SCREENING 1973 CT COLONOGRAPHY - COLON CA SCREENING 1975 Colorectal Cancer Screening 1975 FIT - COLON CA SCREENING 1975 FLEX SIG - COLON CA SCREENING 1975 LIPID TESTING 1975 MAMMOGRAM 1975 HIV SCREENING 1988 HEPATITIS C SCREENING 04/05/1991 DTAP/TDAP/TD VACCINES (1 - Tdap) 1992 HEPATITIS B VACCINE (1 of 3 - 19+ 3-dose series) 1992 PNEUMOCOCCAL VACCINE 50+ (1 of 1 - PCV) 2023 ZOSTER VACCINE (1 of 2) 2023 COVID-19 VACCINE (1 - 2023-2 5 season) 2023 DEPRESSION SCREENING 04/24/2024 PAP SMEAR 11/29/2024 11/29/2021 INFLUENZA VACCINE (Season Ended) 2024 01/11/2022, 01/13/2021 HIB VACCINE Aged Out No longer eligi ble based on patient's age to complete this topic HPV VACCINE Aged Out No longer eligi ble based on patient's age to complete this topic MENINGOCOCCAL (Group B) VACCINE SHARED DECISION-MAKING Aged Out No longer eligible based on patient's age to complete this topic MENINGOCOCCAL GROUPS A/C/Y/W VACCINE Aged Out No longer eligible b ased on patient's age to complete this topic Insurance [facility] Address: [address] [facility] [address] [facility] Care Teams Body Designer Relationship Specialty Start Date End Date Ivan Whitney MD [address] [place] [id number] PCP - General 05/26/22
--- OUTSIDE RECORDS SUMMARY | 2024-09-09 13:25 | XMS_ITS | Clinical Summary ---
Author Organization [facility] Address [address] [place] [id number] Care Team Providers Care Boxing Instructor Name Role Phone Unavailable Primary Care Provider Unavailabl e Allergies No known active allergies Medications furosemide (LASIX) 20 mg tablet furosemide 20 mg tablet Active Active Problems Problem Noted Date Diagnosed Date History of peripheral edema 05/25/2023 Arthritis of carpometacarpal (CMC) joint of righ t thumb 04/13/2023 Trigger thumb of right hand 04/13/2023 History of carpal tunnel release 06/24/2019 Overview (05/25/2023): Last Assessment & Plan: Patient is 2 months postop carpal tunnel release on the right. I recommend patient continue with activity as pain tolerated with her wrist. Patient is to follow up as needed if her symptoms worsen. Carpal tunnel syndrome on right 03/20/2019 Overview (05/25/2023): Added automatically from request for surgery [id number] April 18, 2019 Last Assessment & Plan: Continue progressive range of motion and strengthening. Increase activities as tolerated. Stitch distal aspect incision was pulled. Follow up in 1 month Gradually get back into work. 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 Pulse 72 05/25/2023 9:34 AM KEYBOARD ACTION ASSEMBLER Temperature 36.7 C (98 F) 05/25/2023 9:34 AM KEYBOARD ACTION ASSEMBLER Respiratory Rate - - Oxygen Saturation 98% 05/25/2023 9:34 AM KEYBOARD ACTION ASSEMBLER Inhaled Oxygen Concentration - - Weight 76.2 kg (168 lb) 05/25/2023 9:34 AM KEYBOARD ACTION ASSEMBLER Height 165.1 cm (5' 5 ) 05/25/2023 9:34 AM KEYBOARD ACTION ASSEMBLER Body Mass Index 27.96 05/25/2023 9:34 AM KEYBOARD ACTION ASSEMBLER Plan of Treatment Health Maintenance Due Date Last Done Comments DTAP/TDAP/TD VACCINES (1 - Tdap) 1992 HEPATITIS B VACCINES (1 of 3 - 19+ 3-dose series) 1992 HPV/Cotest (21-29) 1994 HPV/Cotest (30-65) 2003 BREAST CANCER SCREENING 2013 COLORECTAL SCREENING 2018 Colorectal Cancer Screening 2018 FIT-DNA Q 3 years 2018 FIT/FOBT Q 1 year 2018 Flex Sig/CT Colonography Q 5 years 2018 ZOSTER VACCINE (1 of 2) 2023 INFLUENZA VACCINE (#1) 2023 01/11/2022, 2020 CERVICAL CANCER SCREENING 01/20/2026 PAP SMEAR 01/20/2026 01/20/2023, 11/29/2021 Insurance [facility] BLUE ACCESS CHOICE [employer] CHOICE FUND OA PLUS
--- OUTSIDE RECORDS SUMMARY | 2024-09-09 13:26 | XMS_ITS | Referral Summary ---
Author Organization [facility] Address [address] [place] [address] Care Team Providers Care Irrigation System Installer Name Role Phone Ivan Whitney MD Primary Care Provider Ivan Whitney MD Unavailable [phone] Encounters Date Type Department Care Team Description 07/02/2024 7:48 AM CDT - 07/02/2024 11:59 PM CDT Hospital Encounter [facility] [address] [place] [address] Girma Colmenares MD Arthritis of carpometacarpal (CMC) joint of right thumb Discharge Disposition: Discharge to home or self care 07/02/2024 7:40 AM CDT Office Visit [facility] Orthopaedic Surgery [address] [facility] 6[address] [place] [address] [place] [address] Girma Colmenares MD Arthritis of carpometacarpal (CMC) joint of right thumb (Primary Dx) from Last 3 Months Allergies No known active allergies Medications furosemide (LASIX) 20 mg tabletIndication s:Edema,veins Take 1 tablet (20 mg total) by mouth every morning 9 Active valACYclovir (VALTREX) 500 mg tablet Take 1 tablet (500 mg total) by mouth 2 (two) times a day as needed (Outbreak) Active MULTIVITAMIN ORALIndications: Supplement Take 1 tablet by mouth every morning Active ibuprofen (ADVIL,MOTRIN) 400 mg tabletIndication s:Pain Take 1 tablet (400 mg total) by mouth every 6 (six) hours as needed for pain Active evening primrose oil 500 mg capsuleIndicatio ns:Supplement Take 1 capsule (500 mg total) by mouth casino dealer before breakfast Active ascorbic acid (vitamin C) 100 mg tabletIndication s:Supplement Take 1 tablet (100 mg total) by mouth casino dealer before breakfast Active acidophilus-pect in, citrus 100 million cell-10 mg capsuleIndicatio ns:Supplement Take 1 capsule by mouth casino dealer before breakfast Active echinacea 380 mg capsuleIndicatio ns:Supplement Take 1 capsule by mouth casino dealer before breakfast Active HYDROcodone-acet aminophen (NORCO) 5-325 mg per tabletIndication s:Pain Take 1 tablet by mouth every 6 (six) hours as needed for pain for up to 15 doses 15 tablet 4 Active benzonatate (TESSALON) 200 mg capsuleIndicatio ns:Non-recurrent acute suppurative otitis media of left ear without spontaneous rupture of tympanic membrane Take 1 capsule (200 mg total) by mouth 3 (three) times a day as needed for cough 30 capsule 4 Active hydrOXYzine (ATARAX) 25 mg tablet Take 1 tablet 3 times a day by oral route as needed. Active Active Problems Problem Noted Date Diagnosed Date Arthritis of carpometacarpal (CMC) joint of righ t thumb 04/13/2023 Trigger thumb of right hand 04/13/2023 History of carpal tunnel release 06/24/2019 Assessment & Plan (06/24/2019 8:29 AM BOBBIN DRIER): Patient is 2 months postop carpal tunnel release on the right. I recommend patient continue with activity as pain tolerated with her wrist. Patient is to follow up as needed if her symptoms worsen. Carpal tunnel syndrome on right 03/20/2019 Overview (05/02/2019): Added automatically from request for surgery [id number] April 18, 2019 Assessment & Plan (05/29/2019 8:45 AM BOBBIN DRIER): Continue progressive range of motion and strengthening. Increase activities as tolerated. Stitch distal aspect incision was pulled. Follow up in 1 month Gradually get back into work. Assessment & Plan (05/13/2019 10:36 AM BOBBIN DRIER): Continue with scar management. Increase activities as tolerated. Off work for 2 more weeks. Follow up in 2 weeks for repeat evaluation and possible return to work. Assessment & Plan (05/02/2019 6:00 PM BOBBIN DRIER): Status post carpal tunnel release on the right. Numbness and tingling is resolved. Still has some mild pillar pain. Encourage massaging of the incision to soften the scar tissue. Continue utilizing the wrist splint at night. Gradually increase activities as tolerated. Follow up in 2 weeks for repeat evaluation. Assessment & Plan (03/25/2019 9:01 PM BOBBIN DRIER): We discussed the risks, benefits and alternatives including not limited to infection, neurovascular compromise, stiffness, persistent pain, need for further surgery, pillar pain. All questions were answered. Patient is thinking she wants to proceed with carpal tunnel release on the right. Increased frequency of urination 10/04/2018 Overview (06/13/2023): Frequency of micturition;Recorded Elsewhere: No Location: [facility] Source: EHR Chronic: N Practice ID: [id number] Billable Time: 08:45:00 AM Female genital symptoms 08/05/2014 Overview (06/13/2023): Unspecified symptom associated with female genital organs;Recorded Elsewhere: No Location: [facility] Source: EHR Chronic: N Practice ID: 0001 Billable Time: 05:15:00 PM Dysuria 10/06/2010 Overview (06/13/2023): Dysuria;Practice ID: 0001 Feeling irritable 10/06/2010 Overview (06/13/2023): IRRITABILITY;Practice ID: 0001 Urinary tract infectious disease 10/06/2010 Overview (06/13/2023): Urinary tract infection, site not specified;Practice ID: 0001 Mass of breast 08/05/2010 Social History Tobacco Use Types Packs/Day Years Used Date Smoking Tobacco: Never Smokeless Tobacco: Never Tobacco Cessation:Counseling Given: Not Answered Alcohol Use Standard Drinks/Week Comments Yes 1 (1 standard drink = 0.6 oz pur e alcohol) socially AUDIT-C Answer Date Recorded Q1: How often do you have a drink containing alc ohol? 2-3 times a week 05/31/2023 Q2: How many drinks containi ng alcohol do you have on a typical day when you are drinking? 1 or 2 05/31/2023 Q3: How often do you have si x or more drinks on one occasion? Never 05/31/2023 Personal Safety Answer Date Recorded Have you ever been in or are you currently in a harmful physical or emotional relationship or is someone making you feel afraid or unsafe? Denies 05/31/2023 Comments Unknown Sex and Gender Information Value Date Recorded Sex Assigned at Not on file Legal Sex Female 7:22 PM BOBBIN DRIER Gender Identity Not on file Sexual Orientation Not on file Last Filed Vital Signs Vital Sign Reading Time Taken Comments Blood Pressure 101/69 01/20/2024 3:52 PM CDT Pulse 80 01/20/2024 3:52 PM CDT Temperature 36.8 C (98.2 F) 01/20/2024 3:52 PM CDT Respiratory Rate 20 01/20/2024 3:52 PM CDT Oxygen Saturation 97% 01/20/2024 3:52 PM CDT Inhaled Oxygen Concentration - - Weight 72.8 kg (160 lb 8 oz) 01/20/2024 3:52 PM CDT Height 165.1 cm (5' 5 ) 01/20/2024 3:52 PM CDT Body Mass Index 26.71 01/20/2024 3:52 PM CDT Plan of Treatment Not on file Medical Devices Implanted Type Area Tool Planer Set Up Operator Device Identifier Shelf Expiration Date Model / Serial / Lot [employer] Corkscrew Fiberwire 2.2mm 4mm 17.9mm 2 Needle Wire Foot Ankle 2-0 Ar-1318ft - S0 - [id number] Implanted:Qty : 2 on 05/31/2023 by Girma Colmenares MD at [facility] Other - see comments Right: Wrist [employer] [id number] 02/22/2028 AR-1318FT / 0 / [id number] Procedures Procedure Name Priority Date/Time Associated Diagnosis Comments XR WRIST RIGHT 3 OR MORE VIEWS Schedule Routine, Read Routine (OP Routine) 07/02/2024 7:58 AM CDT Arthritis of carpometacarpal (CMC) joint of right thumb from Last 3 Months Results * X-ray wrist right 3+ views (07/02/2024 7:58 AM CDT) Anatomical Region Laterality Modality Upper Extremities, Wrist Right Compute d Radiography 07/02/2024 8:16 AM CDT Impressions 07/02/2024 8:16 AM CDT Unchanged postoperative changes of right trapeziectomy and thumb basal joint reconstruction. Electronically signed by: Arash Parker D.O. Narrative 07/02/2024 8:16 AM CDT EXAMINATION: XR WRIST RIGHT 3 OR MORE VIEWS HISTORY: JOINT PAIN, WRIST COMPARISON: Radiograph 04/02/2024 FINDINGS: Postoperative changes of trapeziectomy with anchor screws in the base of the 1st and 2nd metacarpal. Otherwise normal joint spaces and alignment throughout the wrist. No displaced fracture. Procedure Note Arash Parker, DO - 07/02/2024 EXAMINATION: XR WRIST RIGHT 3 OR MORE VIEWS HISTORY: JOINT PAIN, WRIST COMPARISON: Radiograph 04/02/2024 FINDINGS: Postoperative changes of trapeziectomy with anchor screws in the base of the 1st and 2nd metacarpal. Otherwise normal joint spaces and alignment throughout the wrist. No displaced fracture. IMPRESSION: Unchanged postoperative changes of right trapeziectomy and thumb basal joint reconstruction. Electronically signed by: Arash Parker D.O. Girma Colmenares MD IMG XR PROCEDURES Final Resul t from Last 3 Months Insurance REPLACED BY [facility] OPEN ACCESS [employer]IG[employer] OPEN ACCESS CIGNA OPEN ACCESS ANTHEM ACCESS CHOICE WORKERS COMPENSATION GENER[employer] [place]ON [id number] Care Teams Irrigation System Installer Relationship Specialty Start Date End Date Ivan Whitney MD [address] [facility] [address] [place] [address] PCP - General 03/19/19 Ivan Whitney MD [address] [facility] [address] [place] [address] Family Medicine 03/19/19
--- OUTSIDE RECORDS SUMMARY | 2024-09-09 13:26 | XMS_ITS | Clinical Summary ---
Author Organization [facility] Address [address] [place] [address] Care Team Providers Care Executive Officer Special Warfare Team Name Role Phone Ivan Whitney MD Primary Care Provider Ivan Whitney MD Unavailable [phone] Allergies No known active allergies Medications furosemide [...] 1 capsule (500 mg total) by mouth jewelry mold maker before breakfast Active ascorbic acid (vitamin C) 100 mg tabletIndication s:Supplement Take 1 tablet (100 mg total) by mouth jewelry mold maker before breakfast Active acidophilus-pect in, citrus 100 million cell-10 mg capsuleIndicatio ns:Supplement Take 1 capsule by mouth jewelry mold maker before breakfast Active echinacea 380 mg capsuleIndicatio ns:Supplement Take 1 capsule by mouth jewelry mold maker before breakfast Active HYDROcodone-acet aminophen (NORCO) 5-325 [...] 06/24/2019 Assessment & Plan (06/24/2019 8:29 AM AUTOMOTIVE PAINTER HELPER): Patient is 2 months postop carpal tunnel release on the right. I recommend patient continue with activity as pain tolerated with her wrist. Patient is to follow up as needed if her symptoms worsen. Carpal tunnel syndrome on right 03/20/2019 Overview (05/02/2019): Added automatically from request for surgery [id number] April 18, 2019 Assessment & Plan (05/29/2019 8:45 AM AUTOMOTIVE PAINTER HELPER): Continue progressive range of motion and strengthening. Increase activities as tolerated. Stitch distal aspect incision was pulled. Follow up in 1 month Gradually get back into work. Assessment & Plan (05/13/2019 10:36 AM AUTOMOTIVE PAINTER HELPER): Continue with scar management. Increase activities as tolerated. Off work for 2 more weeks. Follow up in 2 weeks for repeat evaluation and possible return to work. Assessment & Plan (05/02/2019 6:00 PM AUTOMOTIVE PAINTER HELPER): Status post carpal tunnel release on the right. Numbness and tingling is resolved. Still has some mild pillar pain. Encourage massaging of the incision to soften the scar tissue. Continue utilizing the wrist splint at night. Gradually increase activities as tolerated. Follow up in 2 weeks for repeat evaluation. Assessment & Plan (03/25/2019 9:01 PM AUTOMOTIVE PAINTER HELPER): We discussed the risks, benefits and alternatives including not limited to infection, neurovascular compromise, stiffness, persistent pain, need for further surgery, pillar pain. All questions were answered. Patient is thinking she wants to proceed with carpal tunnel release on the right. Increased frequency of urination 10/04/2018 Overview (06/13/2023): Frequency of micturition;Recorded Elsewhere: No Location: [facility] Source: EHR Chronic: N Practice ID: 0001 Billable Time: 08:45:00 AM Female genital symptoms 08/05/2014 Overview (06/13/2023): Unspecified symptom associated with female genital organs;Recorded Elsewhere: No Location: [facility] Source: EHR Chronic: N Practice ID: 0001 Billable Time: 05:15:00 PM Dysuria 10/06/2010 Overview (06/13/2023): Dysuria;Practice ID: 0001 Feeling irritable 10/06/2010 Overview (06/13/2023): IRRITABILITY;Practice ID: 0001 Urinary tract infectious disease 10/06/2010 Overview (06/13/2023): Urinary tract infection, site not specified;Practice ID: 0001 Mass of breast 08/05/2010 Encounters Date Type Department Care Team Description 07/02/2024 7:48 AM CDT - 07/02/2024 11:59 PM CDT Hospital Encounter [facility]) [address] [place] [address] Girma Colmenares MD Arthritis of carpometacarpal (CMC) joint of right thumb Discharge Disposition: Discharge to home or self care 07/02/2024 7:40 AM CDT Office Visit [facility] Orthopaedic Surgery [facility] 6th [place] [address] [place] [address] Girma Colmenares MD Arthritis of carpometacarpal (CMC) joint of right thumb (Primary Dx) from Last 3 Months Surgical History Surgery Date Site/Laterality Comments TEMPOROMANDIBULAR JOINT ARTHROPLASTY 04/24/1997 - 1997 SECTION 2003 & 2007 CARPAL TUNNEL RELEASE 04/24/2018 - 04/23/2019 Right Medical History Medical History Date Comments PONV (postoperative nausea and vomiting) Family History Medical History Relation Name Comments Arthritis Mother Cancer Mother Scoliosis Mother Anesthesia problems Neg Hx Relation Name Status Comments Mother Social History Tobacco Use Types Packs/Day Years [...] on file Legal Sex Female 7:22 PM AUTOMOTIVE PAINTER HELPER Gender Identity Not on file Sexual Orientation Not on file Obstetrics History Last Filed Vital Signs Vital Sign Reading [...] 01/20/2024 3:52 PM CDT Plan of Treatment Health Maintenance Due Date Last Done Comments Cervical Cancer Screening 1973 Colon Cancer Screening-Colonoscopy 1973 Depression Screening 1973 Hepatitis C Screening 1973 DTaP/Tdap/Td Vaccine (1 - Tdap) 1984 Hepatitis B Screening 1991 Regular Well Visit/Exam 18-64 1991 Breast Cancer Screening-Mammogram 03/23/2023 03/23/2022, 03/22/2022 Zoster Vaccine (1 of 2) 2023 Influenza Vaccine (Season Ended) 2024 01/11/2022, 01/13/2021, 02/14/2019 Pneumococcal vaccine <65 Aged Out No longer eligible based on patient's age to complete this topic Medical Devices Implanted Type Area Chief Minister Device Identifier Shelf Expiration Date Model / Serial / Lot [employer] Corkscrew Fiberwire 2.2mm 4mm 17.9mm 2 Needle Wire Foot Ankle 2-0 Ar-1318ft - S0 - [id number] Implanted:Qty : 2 on 05/31/2023 by Girma Colmenares MD at [facility] Other - see comments Right: Wrist [employer] [id number] 02/22/2028 AR-1318FT / 0 / [id number] Procedures Procedure Name Priority Date/Time Associated Diagnosis [...] Resul t from Last 3 Months Insurance [employer] OPEN ACCESS [employer] OPEN ACCESS CIGNA OPEN ACCESS ANTHEM ACCESS CHOICE WORKERS COMPENSATION GENERIC Care Teams Executive Officer Special Warfare Team Relationship Specialty Start Date End Date Ivan Whitney MD [address] [place] [address] PCP - General 03/19/19 Ivan Whitney MD [address] [place] [address] Family Medicine 03/19/19
--- OUTSIDE RECORDS SUMMARY | 2024-09-09 13:26 | XMS_ITS | Patient Health Record ---
Author Organization [facility] Address [address] [address] [place] [address] Care Team Providers Care Aircraft Life Support Fitter Name Role Phone Arash Jean Primary Care Provider [phone] Allergies No Known Allergies Reason For Referral No Information Medications Medication SIG (Take, Route, Frequency, Duration) Notes Start Date End Date Status Amoxicillin-Pot Clavulanate 875-125 MG 1 tablet Orally every 12 hrs for 10 days 07/29/2024 Active Furosemide 20 MG 1 tablet Orally Once a day Active Immunizations Vaccine Route Administration Date Status Comme nts Influenza Vaccine (Flucelvax) IM Intramuscular 02/07/2024 Administered Vital Signs Heart Rate 73 /min 07/29/2024 Temperature 97.2 degrees Fahrenheit 07/29/2024 Respiratory Rate 16 /min 07/29/2024 Height-cm 165.1 cm 07/29/2024 Oximetry 99 % 07/29/2024 Blood pressure diastolic 77 mm Hg 07/29/2024 Weight-kg 71.12 kg 07/29/2024 Height 65 in 07/29/2024 Blood pressure systolic 113 mm Hg 07/29/2024 Weight 156.8 lbs 07/29/2024 BMI 26.09 kg/m2 07/29/2024 Encounters Encounter Location Date Provider Diagnosis [facility] [address] [facility] [address] [place] [address] 02/07/2024 Arash Jean Influenza vaccine needed Z23 [facility] [address] [facility] [address] [place] [address] 07/29/2024 Arash Jean Otitis H66.90 Assessments Encounter [...] worsening symptoms including fever, ear discharge, pain. 02/07/2024 Influenza vaccine needed (ICD-10 - Z23) Plan Of Treatment No Information Insurance Providers Payer Name Payer Address Payer Phone Subscriber Number Group Number Insured Name Patient Relationship to Insured Coverage Start Date Coverage End Date [employer] E[employer] - [employer] [address] [place] [address] [id number] Chiquis Montero Self - patient is the insured 4 [employer] EPO - [employer] [address] [place] [address] [id number] Chiquis Montero Self - patient is the insured 4 4 Medical (General) History Medical History History ICD Code varicose veins ANNUAL EXAM: Pap Smear - 2023 - ANNUAL EXAM: Mammogram - 2023 - ANNUAL EXAM: Colorectal Cancer Screening - 2023 - ANNUAL EXAM: Flu Vaccine - 2023 - Surgical History Surgery Date(Month/Year) Trigger Thumb 2023 Carpal Tunnel 2019
== END 2024-09-09 13:22 | disposition home or self-care (01) ==
LOC: ANHIMG 13:23
PROVIDERS: PCP Family Medicine; Visit Provider Student in an Organized Health Care Education/Training Program
DX: R92.2 Inconclusive mammogram (principal)
CPT/HCPCS: 76641; 77061; 77065; G0279

== ENCOUNTER 2024-10-07 08:03 | Outpatient (CLI) | payer BC, OTHER, SELFPAY ==
--- NOTE | ~2024-10-07 | US_ITS ---
US axilla RT 10/07/2024 08:25 Indication: Right axillary and breast pain. Procedure: High-resolution Limited ultrasound of the right axilla Comparison: Comparison to multiple prior studies sequentially, with oldest reviewed study dated 07/04. Findings: Multiple lymph nodes are present in the right axilla which retain their normal fatty hilum, largest measuring approximately 2.1 cm, likely reactive. No suspicious masses identified in the area of pain. Impression: 1: Mild right axillary lymph node enlargement with normal fatty hilum, likely reactive. BI-RADS CATEGORY 2 - BENIGN FINDINGS Reviewed, dictated and finalized at location A. Impression: 1: Mild right axillary lymph node enlargement with normal fatty hilum, likely r eactive. BI-RADS CATEGORY 2 - BENIGN FINDINGS
== END 2024-10-07 08:04 | disposition home or self-care (01) ==
LOC: MICIMG 08:04
PROVIDERS: PCP Surgery; Visit Provider Surgery
DX: M79.621 Pain in right upper arm (principal); N63.31 Unspecified lump in axillary tail of the right breast
CPT/HCPCS: 76882

== ENCOUNTER 2025-01-14 08:57 | Outpatient (CLI) | payer BC, OTHER, SELFPAY ==
--- NOTE | ~2025-01-14 | XR_ITS ---
EXAMINATION: [id number], 01/14/2025 9:04 CDT HISTORY: M25.569 - Pain in unspecified knee COMPARISON: No comparisons available. Findings: No acute fracture or malalignment. No significant degenerative changes. Soft tissues unremarkable. Impression: No acute fracture or malalignment. Reviewed, dictated and finalized at location A. Impression: No acute fracture or malalignment.
== END 2025-01-14 08:58 | disposition home or self-care (01) ==
LOC: MICIMG 08:58
PROVIDERS: PCP Family Medicine
DX: M25.561 Pain in right knee (principal)
CPT/HCPCS: 73560